=== PATIENT | female | born 1965 ===

== ENCOUNTER → 2020-08-26 | Emergency (ER) | payer OTHER ==
[~2020-08-26] VITALS: Ht 157.5 cm; Wt 59.0 kg
[~2020-08-26] MED LIST: KETO10TA2 PO; ORPHENADRINE C100 MG PO
== END ==
LOC: ER 00:09
DX: M62.830 Muscle spasm of back (principal)

== ENCOUNTER → 2021-04-02 | Emergency (ER) | payer OTHER ==
[~2021-04-02] VITALS: Ht 157.5 cm; Wt 56.7 kg
[~2021-04-02] MED LIST changes: +ACETAMINOPHEN650 M2; +MEDROLPACK PO
== END | disposition home or self-care (01) ==
LOC: ER 20:32
DX: R07.0 Pain in throat (principal)

== ENCOUNTER 2021-04-04 22:18 | Emergency (ER) | payer OTHER ==
[~2021-04-04] VITALS: Ht 157.5 cm; Wt 56.7 kg
[~2021-04-04 22:18] MED LIST changes: -ACETAMINOPHEN650 M2; -MEDROLPACK PO
[2021-04-05] MEDS ORDERED: KETO10TA2 PO (05:12)
[2021-04-05] MEDS ORDERED: MEDROLPACK PO (05:12)
[2021-04-15] MEDS ORDERED: ACETAMINOPHEN650 M2 (20:46)
== END 2021-04-05 05:19 | disposition home or self-care (01) ==
LOC: ER 22:18
DX: M27.0 Developmental disorders of jaws (principal)